=== PATIENT | female | born 1960 | race African-American/Black ===

== ENCOUNTER 2017-01-21 20:10 | Emergency (ER) | payer SELFPAY | END 2017-01-22 00:02 | disposition left against medical advice (07) | LOC: ER 22:11 | DX: Z53.21 Procedure and treatment not carried out due to patient leaving prior to being seen by health care provider (principal) ==

== ENCOUNTER 2017-01-22 07:53 | Emergency (ER) | payer SELFPAY ==
[~2017-01-22] VITALS: Ht 165.1 cm; Wt 111.0 kg
[2017-01-22 08:16] VITALS: BP 159/93
[2017-01-22] MEDS ORDERED: FAMOTIDINE 20MG TABLET PO ONE (08:45)
[2017-01-22] MEDS ORDERED: LORATADINE 10MG TABLET PO SCH (09:00)
== END 2017-01-22 08:51 | disposition home or self-care (01) ==
LOC: ER 07:53
DX: B86 Scabies (principal); R03.0 Elevated blood-pressure reading, without diagnosis of hypertension; Z98.890 Other specified postprocedural states
CPT/HCPCS: 99283

== ENCOUNTER 2018-11-16 19:34 | Inpatient (IN) | payer MEDICAID ==
[~2018-11-16] VITALS: Ht 165.1 cm; Wt 118.8 kg
[2018-11-16] MEDS ORDERED: ASPIRIN 81MG TABLET PO ONE (20:15)
[2018-11-16] MEDS ORDERED: NITROGLYCERIN 0.4MG TABLET SL SL PRN (20:15)
[2018-11-16 20:30] LABS: BASOPHILS % 1.3 % (0.0-2.0); EOSINOPHILS % 4.7 % (0.0-5.0); HEMATOCRIT. 36.2 % (36.0-48.0); HEMOGLOBIN. 12.2 g/dL (12.0-16.0); LYMPHOCYTES % 31.9 % (20.0-50.0); MEAN CORPUSCULAR HEMOGLOBIN 31.2 pg (28.0-32.0); MEAN CORPUSCULAR VOLUME 92.7 fL (81.0-99.0); MEAN PLATELET VOLUME 9.2 fl (7.4-10.4); MONOCYTES % 7.7 % (2.0-8.0); NEUTROPHILS % 54.4 % (40.0-76.0); PLATELET 257 x1000/uL (130-400); RED CELL DISTRIBUTION WIDTH 13.8 % (11.6-14.6)
[2018-11-16 20:34] LABS: CHLORIDE 111 mEq/L (98-107)
[2018-11-16 20:38] LABS: D-DIMER 1.9 mg/L FEU (<0.50); PARTIAL THROMBOPLASTIN TIME 26.7 sec (23.4-31.0); PROTHROMBIN TIME 10.4 sec (9.6-11.0)
[2018-11-16] MEDS ORDERED: NITROGLYCERIN OINT 1GM/INCH UDPKT TD ONE (21:00)
[2018-11-16] MEDS ORDERED: FUROSEMIDE 40MG/4ML VIAL IV ONE (21:00)
[2018-11-16] MEDS ORDERED: IOHEXOL-350 100 ML BOTTLE ONE (23:26)
[2018-11-17] VITALS (34 sets, daily range): BP systolic 131–182; BP diastolic 55–92
[2018-11-17] MEDS ORDERED: ENALAPRIL 2.5MG/2ML VIAL 2ML IV PRN (05:30)
[2018-11-17] MEDS ORDERED: DEXT 5%/0.45% NACL 1000ML 1,000 ML IV SCH (05:30)
[2018-11-17] MEDS ORDERED: ONDANSETRON HCL 4MG/2ML INJ IV PRN ×2 (07:45→11:15)
[2018-11-17] MEDS: LISINOPRIL 20MG TABLET PO SCH ×2 (07:45→08:01)
[2018-11-17] MEDS: FUROSEMIDE 40MG/4ML VIAL IVP SCH (07:59)
[2018-11-17] MEDS ORDERED: IPRATROPIUM/ALBUTEROL 0.5-3(2.5)MG/3ML NEB HHN PRN (08:00)
[2018-11-17] MEDS: FAMOTIDINE 20MG/2ML VIAL IV SCH ×2 (08:07→21:54)
[2018-11-17] MEDS: ASPIRIN 81MG TABLET PO SCH (08:07)
[2018-11-17] MEDS ORDERED: LIDOCAINE HCL 1% 20ML VIAL (Pyxis) INJ ONE ×2 (09:36→10:46)
[2018-11-17] MEDS ORDERED: FENTANYL CITRATE/PF 50MCG/ML 2ML VIAL ONE (09:36)
[2018-11-17] MEDS ORDERED: IOHEXOL-300 100 ML BOTTLE ONE (09:36)
[2018-11-17] MEDS ORDERED: MIDAZOLAM HCL 2 MG/2 ML VIAL ONE (09:36)
[2018-11-17 09:44] LABS: EOSINOPHILS % 4.1 % (0.0-5.0); HEMATOCRIT. 37.6 % (36.0-48.0); HEMOGLOBIN. 12.9 g/dL (12.0-16.0); LYMPHOCYTES % 28.6 % (20.0-50.0); MEAN CORPUSCULAR HEMOGLOBIN 31.5 pg (28.0-32.0); MEAN CORPUSCULAR VOLUME 92.1 fL (81.0-99.0); MEAN PLATELET VOLUME 9.7 fl (7.4-10.4); MONOCYTES % 6.8 % (2.0-8.0); NEUTROPHILS % 59.5 % (40.0-76.0); PLATELET 258 x1000/uL (130-400); RED BLOOD CELL COUNT 4.09 mill/uL (4.2-5.4); RED CELL DISTRIBUTION WIDTH 13.5 % (11.6-14.6)
[2018-11-17 09:50] LABS: CHLORIDE 109 mEq/L (98-107)
[2018-11-17 09:59] LABS: LDL CHOLESTEROL 183 mg/dL (5-100)
[2018-11-17 10:01] LABS: HDL CHOLESTEROL 50 mg/dL (40-59)
[2018-11-17 10:22] LABS: CREATINE KINASE 95 IU/L (26-192)
[2018-11-17 10:23] LABS: CREATINE KINASE MB FRACTION < 1.0 ng/mL (0.5-3.6)
[2018-11-17] MEDS ORDERED: ACETAMINOPHEN 325MG TABLET PO PRN (11:15)
[2018-11-17] MEDS ORDERED: ATROPINE SULFATE 1MG/10ML SYR IV PRN (11:15)
[2018-11-17] MEDS: CLONIDINE 0.1MG TABLET PO PRN (12:03)
[2018-11-17] MEDS: ENALAPRIL 1.25MG/ML VIAL 1ML IV PRN (13:58)
[2018-11-17 15:07] LABS: CLARITY URINE CLEAR (CLEAR); COLOR URINE YELLOW (YELLOW); KETONES URINE NEGATIVE (NEGATIVE); LEUKOCYTE ESTERASE URINE NEGATIVE (NEGATIVE); NITRITE URINE NEGATIVE (NEGATIVE); OCCULT BLOOD URINE 2+ (NEGATIVE); PH URINE 6.5 (4.5-8.0); PROTEIN URINE NEGATIVE (NEGATIVE); SPECIFIC GRAVITY URINE 1.012 (1.005-1.030); UROBILINOGEN URINE 0.2 E.U./dL (0.2-1.0)
[2018-11-17 15:13] LABS: OPIATES URINE SCREEN NEGATIVE (NEGATIVE)
[2018-11-17 15:14] LABS: *AMPHETAMINES SCREEN URINE NEGATIVE (NEGATIVE); *BARBITURATES SCREEN URINE NEGATIVE (NEGATIVE); *BENZODIAZEPINES SCREEN URINE PRESUMTIVE POSITIVE (NEGATIVE); *COCAINE SCREEN URINE NEGATIVE (NEGATIVE); CANNABINOID URINE SCREEN NEGATIVE (NEGATIVE); PHENCYCLIDINE URINE SCREEN NEGATIVE (NEGATIVE)
[2018-11-17 15:15] LABS: METHADONE URINE SCREEN NEGATIVE (NEGATIVE)
[2018-11-17] MEDS: ACETAMINOPHEN 325MG TABLET PO PRN (21:55)
[2018-11-18] VITALS (45 sets, daily range): BP systolic 111–194; BP diastolic 37–122
[2018-11-18 05:46] LABS: BASOPHILS % 0.4 % (0.0-2.0); EOSINOPHILS % 4.7 % (0.0-5.0); HEMATOCRIT. 36.3 % (36.0-48.0); HEMOGLOBIN. 12.2 g/dL (12.0-16.0); LYMPHOCYTES % 30.2 % (20.0-50.0); MEAN CORPUSCULAR HEMOGLOBIN 30.9 pg (28.0-32.0); MEAN CORPUSCULAR VOLUME 91.8 fL (81.0-99.0); MEAN PLATELET VOLUME 9.4 fl (7.4-10.4); MONOCYTES % 9.5 % (2.0-8.0); NEUTROPHILS % 55.2 % (40.0-76.0); PLATELET 210 x1000/uL (130-400); RED BLOOD CELL COUNT 3.95 mill/uL (4.2-5.4); RED CELL DISTRIBUTION WIDTH 13.4 % (11.6-14.6)
[2018-11-18 06:05] LABS: CHLORIDE 108 mEq/L (98-107)
[2018-11-18] MEDS: ASPIRIN 81MG TABLET PO SCH (08:23)
[2018-11-18] MEDS: FAMOTIDINE 20MG/2ML VIAL IV SCH ×2 (08:23→21:32)
[2018-11-18] MEDS: FUROSEMIDE 40MG/4ML VIAL IVP SCH (08:23)
[2018-11-18] MEDS: LISINOPRIL 20MG TABLET PO SCH (08:23)
[2018-11-18] MEDS ORDERED: CLINDAMYCIN 900 MG in DEXTROSE 5% WATER 50 ML IV STA (11:18)
[2018-11-18] MEDS ORDERED: GENTAMICIN/NS IRRIGATION 500 ML IR ONE (11:53)
[2018-11-18] MEDS ORDERED: IOHEXOL-300 100 ML BOTTLE ONE (11:53)
[2018-11-18] MEDS ORDERED: LIDOCAINE HCL 1% 20ML VIAL (Pyxis) INJ ONE (11:53)
[2018-11-18] MEDS ORDERED: ROCURONIUM BROMIDE 10MG/ML VIAL 5ML IV ONE (11:55)
[2018-11-18] MEDS ORDERED: MIDAZOLAM HCL 2 MG/2 ML VIAL ONE (11:55)
[2018-11-18] MEDS ORDERED: FENTANYL CITRATE/PF 50MCG/ML 2ML VIAL ONE (11:55)
[2018-11-18] MEDS ORDERED: EPHEDRINE SULFATE 50MG/ML VIAL ONE (11:57)
[2018-11-18] MEDS ORDERED: SUCCINYLCHOLINE CHLORIDE 200MG/10ML IV ONE (11:57)
[2018-11-18] MEDS ORDERED: PROPOFOL 10MG/ML 100ML 100 ML IV ONE (11:59)
[2018-11-18] MEDS ORDERED: GENTAMICIN SULF 40MG/ML 2ML VIAL ONE (12:17)
[2018-11-18] MEDS: ENALAPRIL 1.25MG/ML VIAL 1ML IV PRN (14:46)
[2018-11-18] MEDS: HYDROCODONE/ACETAMINOPHEN 5/325MG TABLET PO PRN ×2 (14:57→21:40)
[2018-11-18] MEDS: CLONIDINE 0.1MG TABLET PO PRN (22:55)
[2018-11-19] VITALS (43 sets, daily range): BP systolic 100–166; BP diastolic 49–97
[2018-11-19] MEDS: HYDROCODONE/ACETAMINOPHEN 5/325MG TABLET PO PRN (02:29)
[2018-11-19 05:43] LABS: BASOPHILS % 0.4 % (0.0-2.0); EOSINOPHILS % 3.5 % (0.0-5.0); HEMOGLOBIN. 12.3 g/dL (12.0-16.0); LYMPHOCYTES % 23.5 % (20.0-50.0); MEAN CORPUSCULAR HEMOGLOBIN 30.5 pg (28.0-32.0); MEAN CORPUSCULAR VOLUME 91.9 fL (81.0-99.0); NEUTROPHILS % 63.6 % (40.0-76.0); PLATELET 217 x1000/uL (130-400); RED BLOOD CELL COUNT 4.03 mill/uL (4.2-5.4); RED CELL DISTRIBUTION WIDTH 13.3 % (11.6-14.6)
[2018-11-19 06:02] LABS: CHLORIDE 103 mEq/L (98-107)
[2018-11-19] MEDS: FUROSEMIDE 40MG/4ML VIAL IVP SCH (09:42)
[2018-11-19] MEDS: LISINOPRIL 20MG TABLET PO SCH (09:42)
[2018-11-19] MEDS: ASPIRIN 81MG TABLET PO SCH (09:42)
[2018-11-19] MEDS: FAMOTIDINE 20MG/2ML VIAL IV SCH ×2 (09:42→21:41)
[2018-11-19] MEDS ORDERED: DIPHENHYDRAMINE 50MG/ML VIAL IV NR (17:15)
[2018-11-19] MEDS: DOCUSATE SODIUM 100MG CAPSULE PO SCH (17:43)
[2018-11-19] MEDS: ACETAMINOPHEN 325MG TABLET PO PRN (23:44)
[2018-11-20] VITALS (11 sets, daily range): BP systolic 122–167; BP diastolic 65–90
[2018-11-20 07:10] LABS: BASOPHILS % 0.6 % (0.0-2.0); EOSINOPHILS % 3.8 % (0.0-5.0); HEMOGLOBIN. 13.4 g/dL (12.0-16.0); LYMPHOCYTES % 22.3 % (20.0-50.0); MEAN CORPUSCULAR VOLUME 92.3 fL (81.0-99.0); MEAN PLATELET VOLUME 9.3 fl (7.4-10.4); MONOCYTES % 9.9 % (2.0-8.0); NEUTROPHILS % 63.4 % (40.0-76.0); PLATELET 237 x1000/uL (130-400); RED BLOOD CELL COUNT 4.34 mill/uL (4.2-5.4); RED CELL DISTRIBUTION WIDTH 13.3 % (11.6-14.6)
[2018-11-20 07:24] LABS: CHLORIDE 105 mEq/L (98-107)
[2018-11-20] MEDS: DOCUSATE SODIUM 100MG CAPSULE PO SCH (08:31)
[2018-11-20] MEDS: LISINOPRIL 20MG TABLET PO SCH (08:32)
[2018-11-20] MEDS: FUROSEMIDE 40MG/4ML VIAL IVP SCH (08:32)
[2018-11-20] MEDS: FAMOTIDINE 20MG/2ML VIAL IV SCH (08:32)
[2018-11-20] MEDS: ASPIRIN 81MG TABLET PO SCH (08:32)
[2018-11-20 11:35] LABS: BG CARBOXYHEMOGLOBIN 0.9 % (0.5-1.5); BG DEOXYHEMOGLOBIN 5.5 % (0.0-5.0); BG FRACTION INSPIRED OXYGEN 21; BG HCO3 ACT 24.6 mmol/L (22.0-26.0); BG METHEMOGLOBIN 0.2 % (0.0-1.5); BG OXYGEN SATURATION 94.4 % (92.0-98.5); BG OXYHEMOGLOBIN 93.4 % (94.0-97.0); BG PCO2 39.8 mmHg (35.0-45.0); BG PH 7.409 (7.350-7.450); BG PO2 73.7 mmHg (75.0-100.0); BG SAMPLE SITE RIGHT RADIAL; BG TOTAL HEMOGLOBIN 14.2 g/dL (12.0-18.0); BG VENT MODE ROOM AIR
== END 2018-11-20 17:48 | disposition home or self-care (01) | DRG 171 ==
LOC: ER 19:34 → 5EST 21:13 → EDBEDREQ 21:15 → EDBEDREQTM 21:15 → ENRESERV 22:15 → CVICU 11-17 11:30 → 3WST 11-20 00:15
PROVIDERS: ADMIT Internal Medicine; ATTEND Internal Medicine
PROC: 4A023N7 Measurement of Cardiac Sampling and Pressure, Left Heart, Percutaneous Approach (ICD-10-PCS; principal; 2018-11-17)
PROC: B2111ZZ Fluoroscopy of Multiple Coronary Arteries using Low Osmolar Contrast (ICD-10-PCS; 2018-11-17)
PROC: 5A1213Z Performance of Cardiac Pacing, Intermittent (ICD-10-PCS; 2018-11-17)
PROC: B2151ZZ Fluoroscopy of Left Heart using Low Osmolar Contrast (ICD-10-PCS; 2018-11-17)
PROC: 0JH606Z Insertion of Pacemaker, Dual Chamber into Chest Subcutaneous Tissue and Fascia, Open Approach (ICD-10-PCS; 2018-11-18)
PROC: 02H63JZ Insertion of Pacemaker Lead into Right Atrium, Percutaneous Approach (ICD-10-PCS; 2018-11-18)
PROC: 02HK3JZ Insertion of Pacemaker Lead into Right Ventricle, Percutaneous Approach (ICD-10-PCS; 2018-11-18)
PROC: B5171ZZ Fluoroscopy of Left Subclavian Vein using Low Osmolar Contrast (ICD-10-PCS; 2018-11-18)
DX: I44.2 Atrioventricular block, complete (principal); I50.31 Acute diastolic (congestive) heart failure; E66.01 Morbid (severe) obesity due to excess calories; E88.81 Metabolic syndrome and other insulin resistance; I11.0 Hypertensive heart disease with heart failure; I45.10 Unspecified right bundle-branch block; J44.9 Chronic obstructive pulmonary disease, unspecified; I49.5 Sick sinus syndrome; F17.210 Nicotine dependence, cigarettes, uncomplicated; E78.5 Hyperlipidemia, unspecified; Z88.6 Allergy status to analgesic agent; Z68.41 Body mass index [BMI] 40.0-44.9, adult; Z88.0 Allergy status to penicillin; Z82.49 Family history of ischemic heart disease and other diseases of the circulatory system; Z88.8 Allergy status to other drugs, medicaments and biological substances; Z71.6 Tobacco abuse counseling
CPT/HCPCS: 33208; 33210; 36415; 36600; 71045; 71275; 75820; 80048; 80061; 80305; 82375; 82550; 82553; 82805; 83036; 83735; 83880; 84443; 84484; 85379; 93005; 93306; 93458; 97162; 99285; A4565; C1760; C1769; C1785; C1887; C1892; C1893; C1898; J0330; J1200; J1580; J1644; J1940; J2250; J2704; J3010; J3490; J7040; J7050; J7060; Q9967; A4315